=== PATIENT | female | born 1945 | race Caucasian/White ===

== ENCOUNTER 2020-09-28 06:43 | Outpatient (CLI) | payer MEDICARE ==
[2020-09-30 12:10] LABS: SARS-CoV-2 MS2 Positive; SARS-CoV-2 N Gene Negative; SARS-CoV-2 S Gene Negative; SARS-CoV-2 by NAA Not Detected (NotDetected); SARS-CoV-2 orf1ab Negative
== END 2020-09-28 06:44 | disposition home or self-care (01) ==
LOC: LABBT 06:43
PROVIDERS: ATTEND Internal Medicine Gastroenterology
DX: M48.061 Spinal stenosis, lumbar region without neurogenic claudication (principal); M43.16 Spondylolisthesis, lumbar region; Z20.828 Contact with and (suspected) exposure to other viral communicable diseases
CPT/HCPCS: 87635; U0003

== ENCOUNTER 2020-10-03 06:26 | Day surgery (SDC) | payer MEDICARE ==
[2020-10-02 11:33] VITALS: BMI 23.8
--- NOTE | 2020-10-03 05:21 | HP ---
HISTORY OF PRESENT ILLNESS: Ms. Keane is known to us for prior lumbar decompression and fusion, who returns now for re-evaluation of worsening symptoms of central spinal canal stenosis with claudication, which we identified back in 2016. She brings in the MRI on [facility] from [place] that shows profound central canal stenosis at L3-4, which is the adjacent segment above her prior fusion. This would most certainly account for the symptoms she is experiencing. She hopes to discuss possible surgical intervention. PAST MEDICAL HISTORY: Anxiety, arthritis, seasonal allergies, and osteoporosis. PAST SURGICAL HISTORY: Cholecystectomy, herniorrhaphy, corneal transplants, bunionectomy, and lumbar spinal fusion. CURRENT MEDICATIONS: 1. Prempro. 2. Cholestyramine. 3. Fluorometholone. 4. Zolpidem. 5. Gabapentin. ALLERGIES: TO SULFA DRUGS, ERYTHROMYCIN, TETRACYCLINE, IV CONTRAST, MOTRIN, POSSIBLE LATEX. ASSESSMENT: Lumbar spinal stenosis. PLAN: Dr. Crouch met with the patient, reviewed imaging, advocated for L3-L4 decompression and extension of fusion. He explained to the patient the risks, benefits, and alternatives to the procedure. The patient expressed understanding and elected to move forward with surgery as discussed. I do believe the patient is mentally competent and capable of making medical decisions for herself. We will move forward with surgery as planned. Job ID: [id number]
[2020-10-03] MEDS ORDERED: EPINEPHrine 1 MG/ML AMP ONE (06:33)
[2020-10-03] MEDS ORDERED: Thrombin 5000 UNITS/5 ML VIAL ONE (06:33)
[2020-10-03] MEDS ORDERED: Bupivacaine PF 0.5% 30 ML VIAL ONE (06:33)
[2020-10-03] MEDS ORDERED: Fentanyl 250 MCG/5 ML VIAL ONE (06:58)
[2020-10-03] MEDS ORDERED: HYDROmorphone 2 MG/ML VIAL SLOW IVP PRN (09:26)
[2020-10-03] MEDS ORDERED: Promethazine HCl 25 MG/ML VIAL SLOW IVP PRN (09:26)
[2020-10-03] MEDS ORDERED: Ondansetron HCl/PF 4 MG/2 ML Vial IVP PRN (09:26)
[2020-10-03] MEDS ORDERED: Promethazine HCl 25 MG/ML VIAL IM PRN (09:26)
[2020-10-03] MEDS ORDERED: Fentanyl 100 MCG/2 ML VIAL ONE ×2 (09:55→10:43)
--- NOTE | 2020-10-03 10:08 | OP ---
DATE OF PROCEDURE: 10/03/2020 TERMINAL SYSTEM OPERATOR: Jakob Cruz PA-C INDICATION: Pain. DIAGNOSES: Adjacent segment stenosis, adjacent segment spondylolisthesis. PROCEDURES PERFORMED: Exploration of fusion, removal of hardware, and extension of fusion at L3-4. ANESTHESIA: General. DESCRIPTION OF PROCEDURE: The patient was brought into the operating room and placed under general anesthesia. She was flipped from supine to prone position on operating room table. A linear incision was planned at the location of a prior incision with extension in a cephalad direction. After prepping and draping and after an appropriate preoperative pause, the incision was created. The patient's prior hardware was identified present at L4-5 bilaterally. A complete laminectomy was performed at the level above at L3-4 with removal of the facet joints at that level. After completing the decompression, pedicle screws were placed at L3 bilaterally with the aid of C-arm fluoroscopy. We then redirected our attention to the hardware below where there was exploration of fusion, removal of hardware including rods spanning L4-5 as well as the set screws. Along the yonathan was then placed on each side spanning L3 through L5 where set screws were then placed and final tightened. The wound was then irrigated. Hemostasis was maintained throughout. The procedure came to an end without known complication. Job ID: [id number]
[2020-10-03] MEDS ORDERED: Lidocaine 1% PF 5 ML VIAL ONE (10:35)
[2020-10-03] MEDS ORDERED: PHENYLEPHRINE-NS 100 MCG/ML 10 ML SYRINGE ONE (10:35)
[2020-10-03] MEDS ORDERED: Glycopyrrolate 0.2 MG/ML 5 ML SYRINGE ONE (10:35)
[2020-10-03] MEDS ORDERED: Ondansetron PF 4 MG/2 ML Vial ONE (10:35)
[2020-10-03] MEDS ORDERED: Rocuronium Bromide 10 MG/ML (10ML VIAL) ONE (10:35)
[2020-10-03] MEDS ORDERED: Dexamethasone 20 MG/5 ML VIAL ONE (10:35)
[2020-10-03] MEDS ORDERED: PROPOFOL 200 MG/20 ML VIAL ONE (10:35)
[2020-10-03] MEDS ORDERED: HYDROcodone/Acetaminophen 5/325 mg Tablet ONE (12:12)
== END 2020-10-03 14:00 | disposition home or self-care (01) ==
LOC: SDC 06:26
PROVIDERS: ATTEND Neurological Surgery
PROC: 0SG10J1 Fusion of 2 or more Lumbar Vertebral Joints with Synthetic Substitute, Posterior Approach, Posterior Column, Open Approach (ICD-10-PCS; principal; 2020-10-03)
DX: M48.062 Spinal stenosis, lumbar region with neurogenic claudication (principal); M43.16 Spondylolisthesis, lumbar region; F41.9 Anxiety disorder, unspecified; M19.90 Unspecified osteoarthritis, unspecified site; J30.2 Other seasonal allergic rhinitis; M81.0 Age-related osteoporosis without current pathological fracture; Z79.899 Other long term (current) drug therapy; Z88.1 Allergy status to other antibiotic agents; Z88.2 Allergy status to sulfonamides; Z88.6 Allergy status to analgesic agent; Z91.048 Other nonmedicinal substance allergy status; Z91.041 Radiographic dye allergy status; Z98.1 Arthrodesis status
CPT/HCPCS: 22612; 22842; 76000; C1713 ×3; C1768; J0171; J0690; J1100; J2405; J2704; J3010; S0020